=== PATIENT | male | born 1990 | race Caucasian/White ===

== ENCOUNTER 2018-10-09 18:23 | Emergency (ER) | payer OTHER ==
[~2018-10-09] VITALS: Ht 177.8 cm; Wt 74.8 kg
[2018-10-09] MEDS ORDERED: MELOXICAM15 MG PO (18:38)
[2018-10-09] MEDS ORDERED: SERTRALINE HCL25 MG PO (18:39)
[2018-10-09] MEDS ORDERED: POTASSIUM CHLO10 MEQ PO (19:20)
--- NOTE | 2018-10-09 19:24 | EKG ---
[facility] [address] [facility] [place] [address] Signed Normal sinus rhythm Right bundle branch block Voltage criteria for left ventricular hypertrophy Abnormal ECG No previous ECGs available Confirmed by PETER LICONA MD ([id number] on 10/09/2018 7:23:58 PM Electronically Signed By: PETER LICONA MD 10/09/18 1924 PATIENT NAME: RADHA GRAY LORENAPOWERNERY Electrocardiogram DATE OF : 89 PHYSICIAN: PETER LICONA MD REPORT #: [id number] REPORT IS CONFIDENTIAL AND NOT TO BE RELEASED WITHOUT AUTHORIZATION
--- NOTE | 2018-10-09 19:24 | EKG ---
[facility] [address] [facility] [place] [address] Signed Normal sinus rhythm Left ventricular hypertrophy with QRS widening Abnormal ECG When compared with ECG of 09-OCT-2018 18:25, (Unconfirmed) Right bundle branch block is no longer present Confirmed by PETER LIOCNA MD [id number] on 10/09/2018 7:24:25 PM Electronically Signed By: PETER LICONA MD 10/09/18 1924 PATIENT NAME: RADHA GRAY SHAGGY Electrocardiogram DATE OF : 89 PHYSICIAN: PETER LICONA MD REPORT #: [id number] REPORT IS CONFIDENTIAL AND NOT TO BE RELEASED WITHOUT AUTHORIZATION
== END 2018-10-09 20:00 | disposition home or self-care (01) ==
LOC: ED 18:23
DX: E87.6 Hypokalemia (principal)
CPT/HCPCS: 36415; 71045; 80053; 84484; 85025; 93005; 93010; 99285-25